=== PATIENT | female | born 1995 | race Native Hawaiian/Other Pacific Islander ===

== ENCOUNTER 2016-11-28 05:53 | Emergency (ER) | payer BC, MEDICAID ==
[2016-11-28 06:45] LABS: Basophils % (Auto) 0.2 % (0.0-1.8); Eosinophils % (Auto) 1.7 % (0.0-4.3); Hematocrit 39.9 % (30.3-42.9); Hemoglobin 13.3 gm/dl (10.1-14.3); Mean Corpuscular HGB Conc 34 % (30-34); Mean Corpuscular Hemoglobin 31 pg (28-32); Mean Corpuscular Volume 93 fl (79-97); Platelet Count 229 K/mm3 (140-440); Red Blood Count 4.31 M/mm3 (3.65-5.03); Red Cell Distribution Width 12.5 % (13.2-15.2); White Blood Count 7.5 K/mm3 (4.5-11.0)
[2016-11-28 06:46] LABS: Bacteria,Urine 1+ /HPF (Negative); Mucus,Urine FEW /HPF; WBC,Urine < 1.0 /HPF (0.0-6.0)
[2016-11-28 06:49] LABS: Bilirubin,Urine Negative (Negative); Blood,Urine Trace (Negative); Ketones,Urine Negative (Negative); Leukocyte Esterase,Urine Negative (Negative); Nitrite,Urine Negative (Negative); Protein,Urine <15 mg/dL mg/dL (Negative); Urobilinogen,Urine < 2.0 mg/dL (<2.0)
[2016-11-28] MEDS ORDERED: NACL 0.9% 1000 ML IV ONE (06:51)
[2016-11-28 07:04] LABS: Alanine Aminotransferase 46 units/L (7-56); Albumin 4.5 g/dL (3.9-5); Albumin/Globulin Ratio 1.5 %; Alkaline Phosphatase 50 units/L (35-129); Anion Gap 19 mmol/L; BUN/Creatinine Ratio 23.33; Bilirubin,Total 0.4 mg/dL (0.1-1.2); Blood Urea Nitrogen 14 mg/dL (7-17); Calcium 9.3 mg/dL (8.4-10.2); Carbon Dioxide 24 mmol/L (22-30); Chloride 97.2 mmol/L (98-107); Glucose 96 mg/dL (65-100); Lipase 33 units/L (13-60); Potassium 3.8 mmol/L (3.6-5.0); Sodium 136 mmol/L (137-145); Total Protein 7.5 g/dL (6.3-8.2)
[2016-11-28] MEDS ORDERED: NACL ONE (07:06)
--- NOTE | 2016-11-28 08:06 | Cat Scan Report ---
CT SCAN OF THE ABDOMEN AND PELVIS WITH CONTRAST: HISTORY: Abdominal pain. TECHNIQUE: Helical CT in 1.25mm intervals following IV contrast. Sagittal and coronal reconstructions. FINDINGS: The liver is normal in size and is without focal defect. No gallstones or biliary dilatation are noted. The spleen and pancreas demonstrate a normal size and attenuation with no evidence of abnormal mass. The kidneys are normal in size and position with no evidence of hydronephrosis or mass. The adrenal glands are normal. There is no intestinal obstruction or ascites. Normal appendix. The abdominal aorta is normal. A 2.6 cm right ovarian cyst is identified. The left ovary and uterus are within normal limits. Intrauterine device is in place. There is small to medium pelvic ascites. There is no evidence of any abnormal masses or fluid collections within the pelvis. No adenopathy is identified. The bladder is normal. IMPRESSION: 2.6 cm right ovarian cyst with small to medium pelvic ascites.
--- NOTE | 2016-11-28 08:34 | Ultrasound Report ---
ULTRASOUND ABDOMEN LIMITED INDICATION: RUQ pain. COMPARISON: None similar. FINDINGS: Right upper quadrant ultrasound demonstrates unremarkable liver. No gallstones or pericholecystic fluid. Minimal gallbladder sludge hinted on some images. Gallbladder wall thickness is 2 mm. Negative sonographic Olsen's sign. Common bile duct is 3.2 mm. Imaged pancreas, nonaneurysmal abdominal aorta, IVC and right kidney appear within normal limits. CONCLUSION: Mild gallbladder sludge possible without acute right upper quadrant sonographic abnormality, as described. Thank you for the opportunity to participate in this patient's care.
[2016-11-28] MEDS: MORPHINE IV ONE ×2 (08:38→08:47)
[2016-11-28] MEDS: ZOFRAN IV ONE ×2 (08:39→08:47)
[2016-11-28] MEDS ORDERED: TORADOL IV ONE (08:47)
--- NOTE | 2016-11-28 08:47 | Emergency Department Report ---
HPI - General Chief Complaint: Abdominal Pain Time Seen by Provider: 11/28/16 06:19 - HPI HPI: Chief complaint: Abdominal pain and rectal bleeding HPI: Patient complains of right sided abdominal pain that started on Monday for several hours in went away and returned Monday 1:00 in the morning and has had it since then. Patient states she was constipated and had a bowel movement followed by rectal bleeding. Patient states she looked with her phone and saw a tear in her anal area. Patient states she's had this before when she was constipated but it did not last. Patient states she had another normal bowel movement followed by bright red bleeding. Patient states she had medication for this [facility]. Mode of arrival: EMS Source: Patient Began: See above Duration: See above Context: See above Quality: Sharp rectal pain, crampy abdominal pain Severity: 10 out of 10 Improved with: Nothing Worsened with: See above Associated signs and symptoms: No nausea, vomiting or fever ED Past Medical Hx - Social History Smoking Status: Never Smoker Substance Use Type: None - Medications Home Medications: Home Medications Medication Instructions Recorded Confirmed Last Taken Type Dibucaine [Nupercainal] 28.4 gm RC PRN PRN #1 oint...g. 11/28/16 Unknown Rx traMADol [Ultram 50 MG tab] 50 mg PO Q6HR PRN #14 tablet 11/28/16 Unknown Rx ED Review of Systems ROS: Stated complaint: ABD PAIN Other details as noted in HPI ROS Constitutional: No fever ENT: No uri symptoms Cardiovascular: No chest pain Respiratory: No sob or cough GI: No nausea vomiting or diarrhea : No dysuria frequency or urgency, Skin: No rash Neuro: No focal weakness or numbness Psych: No depression [place]/lymph: No edema Physical Exam - Physical Exam Vital Signs: Vital Signs 11/28/16 11/28/16 06:07 06:09 Temperature 98 F Pulse Rate 88 Respiratory 14 14 Rate Blood Pressure 120/88 [Left] O2 Sat by Pulse 100 100 Oximetry Physical Exam: GENERAL: The patient is well-developed well-nourished . HEENT: Normocephalic. Atraumatic. Extraocular motions are intact. Patient has moist mucous membranes. NECK: Supple. No meningitic signs are noted. There is no adenopathy noted. CHEST/LUNGS: Clear to auscultation. There is no respiratory distress noted. HEART/CARDIOVASCULAR: Regular. There is no tachycardia. There is no gallop rub or murmur. ABDOMEN: Abdomen is soft, tender right side of the abdomen without rebound or guarding.. Patient has normal bowel sounds. There is no abdominal distention. Anal area shows a tear at 6:00. Unable to do rectal exam secondary to the pain. No hemorrhoids noted. SKIN: There is no rash. There is no edema. There is no diaphoresis. NEURO: The patient is awake, alert, and oriented. The patient is cooperative. The patient has no focal neurologic deficits. The patient has normal speech. MUSCULOSKELETAL: There is no tenderness or deformity. There is no limitation range of motion. There is no evidence of acute injury. ED Course Vital Signs 11/28/16 11/28/16 06:07 06:09 Temperature 98 F Pulse Rate 88 Respiratory 14 14 Rate Blood Pressure 120/88 [Left] O2 Sat by Pulse 100 100 Oximetry - Reevaluation(s) Reevaluation #1: 11/28/16 08:56 Patient refused morphine and was therefore given Toradol. Patient advised of the findings of her CAT scan and ultrasound and will follow-[facility] with [facility] and given a referral to gastroenterology. ED Medical Decision Making - Lab Data Result diagrams: 11/28/16 06:30 11/28/16 06:30 Laboratory Tests 11/28/16 11/28/16 06:30 06:33 AST 114 H Lipase 33 Urine RBC (Auto) 1.0 U Epithel Cells (Auto) 4.0 Urine Bacteria (Auto) 1+ Urine HCG, Qual Negative - Radiology Data Radiology results: report reviewed (CT abdomen shows an enlarged right ovarian cyst some pelvic fluid. Ultrasound of the right upper quadrant shows questionable sludge but otherwise normal.) Critical care attestation.: If time is entered above; I have spent that time in minutes in the direct care of this critically ill patient, excluding procedure time. ED Disposition Clinical Impression: Right ovarian cyst, Anal tear Disposition: DISCHARGED TO HOME OR SELFCARE Is pt being admited?: No Does the pt Need Aspirin: No Condition: Stable Instructions: Abdominal Pain (ED), Ovarian Cyst (ED), Anal Fissure (ED), Rectal Bleeding (ED) Prescriptions: Dibucaine [Nupercainal] 28.4 gm RC PRN PRN #1 oint...g. PRN Reason: Pain traMADol [Ultram 50 MG tab] 50 mg PO Q6HR PRN #14 tablet PRN Reason: Pain Referrals: PRIMARY CARE, [Primary Care Provider] - 3-5 Days [facility] [Provider Group] - 3-5 Days [facility] [Provider Group] - 3-5 Days Time of Disposition: 08:48
[2016-11-28 09:46] VITALS: BP 118/84
== END 2016-11-28 09:47 | disposition home or self-care (01) ==
LOC: ED 05:53
DX: N83.201 Unspecified ovarian cyst, right side (principal); K62.81 Anal sphincter tear (healed) (nontraumatic) (old)
CPT/HCPCS: 36415; 74177; 76705; 80053; 81001; 81025; 83690; 85025; 96361; 96374; 99284; J1885; J2270; J2405; J7030; Q9967

== ENCOUNTER 2019-02-01 00:53 | Emergency (ER) | payer SELFPAY ==
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
[2019-02-01] MEDS ORDERED: PERCOCET 5/325 ONE (02:43)
[2019-02-01] MEDS ORDERED: PERCOCET 5/325 PO ONE (02:44)
== END 2019-02-01 02:45 | disposition home or self-care (01) ==
LOC: ED 00:53
DX: S86.912A Strain of unspecified muscle(s) and tendon(s) at lower leg level, left leg, initial encounter (principal); W18.30XA Fall on same level, unspecified, initial encounter; Y93.89 Activity, other specified; Y92.89 Other specified places as the place of occurrence of the external cause; Y99.8 Other external cause status
CPT/HCPCS: 99283